=== PATIENT | female | born 1930 | race Two or more races ===

== ENCOUNTER 2018-02-12 16:10 | Emergency (ER) | payer MEDICARE ==
[~2018-02-12] VITALS: Ht 162.6 cm; Wt 68.0 kg
--- NOTE | 2018-02-12 16:25 | NUR ---
PT BIBA RA 89 From home GL[facility] C/O FALL HEAD LACERATION, PT LEGALLY BLIND, CONSCIOUS AND COHERENT, NOT IN RESPIRATORY DISTRESS, KEPT RESTED AND COMFORTABLE.
--- NOTE | 2018-02-12 16:40 | NUR ---
SEEN AND EXAMINED BY DR. TIMMONS.
[2018-02-12] MEDS ORDERED: LIDOCAINE 1%-EPI 1:100,000 20 ML VIAL ONE (17:38)
[2018-02-12] MEDS ORDERED: LIDOCAINE HCL/EPINEPHRINE/PF 30 ML VIAL TP ONE (18:00)
--- NOTE | 2018-02-12 18:04 | NUR ---
SUTURING DONE BY DR. TIMMONS.
--- NOTE | 2018-02-12 18:32 | NUR ---
Patient discharged to home in stable condition. Written and verbal after care instructions given. Patient verbalizes understanding of instruction.
[2018-02-12 18:34] VITALS: BP 142/84
== END 2018-02-12 18:34 | disposition home or self-care (01) ==
LOC: EDBD 16:12 → ER 16:12
DX: S01.01XA Laceration without foreign body of scalp, initial encounter (principal); I10 Essential (primary) hypertension; E78.00 Pure hypercholesterolemia, unspecified; H54.8 Legal blindness, as defined in USA; W01.198A Fall on same level from slipping, tripping and stumbling with subsequent striking against other object, initial encounter; Y93.01 Activity, walking, marching and hiking; Y92.89 Other specified places as the place of occurrence of the external cause; Y99.8 Other external cause status
CPT/HCPCS: 12002; 70450; 99284; A6403 ×2; J3490; A4606; Z7610